=== PATIENT | male | born 1980 | race Hispanic/Latino ===

== ENCOUNTER 2018-10-11 18:32 | Emergency (ER) | payer OTHER ==
[2018-10-11 19:10] VITALS: BMI 29.2
[2018-10-11 19:11] VITALS: RESP 18
[2018-10-11] MEDS ORDERED: Sodium Chloride 0.9% 1,000 ML IV STA (19:39)
[2018-10-11 20:52] LABS: BASO # 0.01 K/mm3 (0.0-2.0); BASO % 0.1 % (0.0-3.0); GRAN # 5.69 (1.4-6.5); GRAN % 84.8 % (50.0-68.0); HEMOGLOBIN 16.1 g/dL (14.0-18.0); LYMPH # 0.6 (1.2-3.4); LYMPH % 9.4 % (22.0-35.0); MEAN CELL VOLUME 87.3 fl (80.0-105.0); MEAN CORPUSCULAR HEMOGLOBIN 30.1 pg (25.0-35.0); MEAN CORPUSCULAR HGB CONC 34.5 g/dl (31.0-37.0); MEAN PLATELET VOLUME 9.9 fl (7.0-11.0); MONO # 0.4 (0.1-0.6); MONO % 5.7 % (1.0-6.0); RBC 5.35 10^6/uL (3.5-6.1); RED CELL DISTRIBUTION WIDTH 12.3 % (11.5-14.5); WHITE BLOOD COUNT 6.7 10^3/uL (4.5-11.0)
[2018-10-11 20:56] LABS: ALB/GLOB RATIO 1.4 (1.1-1.8); ALBUMIN 4.3 g/dL (3.0-4.8); ALT/SGPT 46 U/L (7-56); AST/SGOT 29 U/L (17-59); BLOOD UREA NITROGEN 17 mg/dL (7-21); CALCIUM 9.1 mg/dL (8.4-10.5); GFR NON-AFRICAN AMERICAN > 60
[2018-10-11 22:56] VITALS: TEMP 98.6
--- NOTE | 2018-10-11 23:19 | ED PDOC ---
Arrival/HPI - General Chief Complaint: Flu-like Symptoms Time Seen by Provider: 10/11/18 19:10 Historian: Patient - History of Present Illness Narrative History of Present Illness (Text): 10/11/18 23:19 37-year-old otherwise healthy male presents today with body aches, fevers, sore throat, nasal congestion and occasional cough that started yesterday. Patient states she had an episode of vomiting this morning along with some epigastric pain, which resolved. Patient states he's been taking Motrin for fever at home. He is complaining of fatigue. He denies any abdominal pain at present time. He denies dizziness or weakness. He denies back pain. Denies any urinary symptoms. Patient denies sick contacts. Patient states he did not get his flu shot this year. Time/Duration: Other (yesterday) Symptom Onset: Gradual Symptom Course: Worsening Quality: Aching Severity Level: Mild Past Medical History - Provider Review Nursing Documentation Reviewed: Yes - Travel History Have you recently traveled outside [place] w/in the past 3 mons?: No - Infectious Disease Hx of Infectious Diseases: None - Psychiatric Hx Substance Use: No Family/Social History - Physician Review Nursing Documentation Reviewed: Yes Family/Social History: Unknown Family HX Smoking Status: Never Smoked Hx Alcohol Use: No Hx Substance Use: No Allergies/Home Meds Allergies/Adverse Reactions: Allergies No Known Allergies Allergy (Verified 10/11/18 19:10) Review of Systems - Review of Systems Constitutional: Fatigue, Fevers ENT: Sore Throat, Sinus Congestion Respiratory: Cough. absent: SOB Cardiovascular: absent: Chest Pain, Palpitations Gastrointestinal: Nausea, Vomiting Genitourinary Male: absent: Dysuria, Frequency, Hematuria Musculoskeletal: Other (bodyaches). absent: Back Pain, Neck Pain Neurological: Headache. absent: Dizziness Psychiatric: absent: Anxiety, Depression, Suicidal Ideation Physical Exam Vital Signs Reviewed: Yes Vital Signs Temp Pulse Resp BP Pulse Ox 10/11/18 22:56 98.6 F 86 18 115/65 98 10/11/18 21:09 100.4 F H 93 H 18 113/66 96 10/11/18 20:18 101.5 F H 10/11/18 19:10 101.5 F H 108 H 18 105/70 98 Temperature: Febrile Blood Pressure: Normal Pulse: Tachycardic Respiratory Rate: Normal Appearance: Positive for: Well-Appearing, Non-Toxic, Comfortable Pain Distress: None Mental Status: Positive for: Alert and Oriented X 3 - Systems Exam Head: Present: Atraumatic Pupils: Present: PERRL Extroacular Muscles: Present: EOMI Conjunctiva: Present: Normal Ears: Present: Normal, NORMAL TM Mouth: Present: Moist Mucous Membranes, Normal Lips, Normal Tounge. No: Drooling, Trismus, Normal Teeth Pharnyx: Present: Normal. No: ERYTHEMA, Peritonsilar Swelling, Uvular Deviation Nose (External): Present: Atraumatic Nose (Internal): Present: Normal Inspection Neck: Present: Normal Range of Motion, Trachea Midline Respiratory/Chest: Present: Clear to Auscultation, Good Air Exchange. No: Respiratory Distress, Accessory Muscle Use Cardiovascular: Present: Regular Rate and Rhythm Abdomen: No: Tenderness, Distention, Peritoneal Signs, Rebound, Guarding Back: Present: Normal Inspection. No: Midline Tenderness, Paraspinal Tenderness Upper Extremity: Present: Normal ROM Neurological: Present: GCS=15 Skin: Present: Warm, Dry, Normal Color. No: Rashes Psychiatric: Present: Alert, Oriented x 3 Medical Decision Making ED Course and Treatment: 10/11/18 23:23 patient resting comfortably in the emergency room febrile and tachycardic with flulike symptoms since yesterday. Abdomen is soft nontender nondistended. Patient was given Tylenol by mouth, Toradol IV and 1 L normal saline IV bolus CBC within normal limits CMP within normal limits Rapid flu negative Chest x-ray no infiltrate or effusion Tamiflu given by mouth Patient reassessment: Patient feeling better after medications. Vital signs are stable. abdomen remains soft non tender, non distended. I discussed all results in depth with the patient advised follow-up with primary care physician within the next few days. Advised increasing fluids and alternating Tylenol and Motrin for fever reduction. I've advised taking Tamiflu twice daily 5 days. Advised patient to return immediately if he develops abdominal pain with continued nausea and vomiting or if any other concerning symptoms develop Patient verbalizes understanding of discharge instructions and need for immediate followup. all aspects of this case were discussed the attending of record. IMPRESSION; influenza Motrin one tablet every 6 hours as needed for pain/fever reduction Tamiflu twice daily 5 days Increase fluids Followup with primary care physician the next 2 days Return immediately if symptoms worsen persist or if new symptoms develop Reassessment Condition: Re-examined, Improved - Lab Interpretations Lab Results: 10/11/18 20:41 10/11/18 20:41 Lab Results 10/11/18 20:41: Influenza Typ A,B (EIA) Negative for flu a/b 10/11/18 20:41: WBC 6.7, RBC 5.35, Hgb 16.1, Hct 46.7, MCV 87.3, MCH 30.1, MCHC 34.5, RDW 12.3, Plt Count 181, MPV 9.9, Gran % 84.8 H, Lymph % (Auto) 9.4 L, Glynn % (Auto) 5.7, Eos % (Auto) 0.0 L, Baso % (Auto) 0.1, Gran # 5.69, Lymph # (Auto) 0.6 L, Glynn # (Auto) 0.4, Eos # (Auto) 0.0, Baso # (Auto) 0.01 10/11/18 20:41: Sodium 137, Potassium 4.4, Chloride 102, Carbon Dioxide 27, Anion Gap 12, BUN 17, Creatinine 0.9, Est GFR ( Amer) > 60, Est GFR (Non- Af Amer) > 60, Random Glucose 100, Calcium 9.1, Total Bilirubin 0.6, AST 29, ALT 46, Alkaline Phosphatase 58, Total Protein 7.3, Albumin 4.3, Globulin 3.0, Albumin/Globulin Ratio 1.4 - RAD Interpretation Radiology Orders: 10/11/18 19:39 CHEST TWO VIEWS (PA/LAT) [RAD] Stat - Medication Orders Current Medication Orders: Discontinued Medications Acetaminophen (Tylenol 325mg Tab) 975 mg PO STAT STA Stop: 10/11/18 19:40 Last Admin: 10/11/18 20:18 Dose: 975 mg MAR Pain/Vitals Document 10/11/18 20:18 RAFAEL (Rec: 10/11/18 20:[address] [facility] [id number]) Pain Reassessment Is This A Pain ReAssessment? No Sleep Is patient sleeping during reassessment? No Presence of Pain Presence of Pain Yes Pain Scale Used Protocol: PSCALES Pain Scale Used Numeric Vitals Temperature (97.6 F-99.6 F) 101.5 F Temperature Source Oral Sodium Chloride (Sodium Chloride 0.9%) 1,000 mls @ 999 mls/hr IV .Q1H1M STA Stop: 10/11/18 20:39 Last Admin: 10/11/18 20:20 Dose: 999 mls/hr eMAR Start Stop Document 10/11/18 20:20 LA (Rec: 10/11/18 20:[address] [facility] [id number]) Intravenous Solution Start Date 10/11/18 Start Time 20:20 End Date 10/11/18 End time 21:20 Total Infusion Time 60 Ketorolac Tromethamine (Toradol) 30 mg IVP STAT STA Stop: 10/11/18 19:40 Last Admin: 10/11/18 20:18 Dose: 30 mg MAR Pain Assessment Document 10/11/18 20:18 LA (Rec: 10/11/18 20:[address] [facility] [id number]) Pain Reassessment Is this a pain reassessment? No Sleep Is patient sleeping during reassessment? No Presence of Pain Presence of Pain Yes Pain Scale Used Protocol: PSCALES Pain Scale Used Numeric Location Pain Location Body Site Generalized Description Intensity of Pain at present 5 IVP Administration Document 10/11/18 20:18 LA (Rec: 10/11/18 20:[address] [facility] [id number]) Charges for Administration # of IVP Administrations 1 Ondansetron HCl (Zofran Inj) 4 mg IVP STAT STA Stop: 10/11/18 19:41 Last Admin: 10/11/18 20:19 Dose: 4 mg IVP Administration Document 10/11/18 20:19 LA (Rec: 10/11/18 20:[address] [facility] [id number]) Charges for Administration # of IVP Administrations 1 Oseltamivir Phosphate (Tamiflu Cap) 75 mg PO STAT STA; Protocol Stop: 10/11/18 21:36 Last Admin: 10/11/18 21:55 Dose: 75 mg Disposition/Present on Arrival - Present on Arrival Any Indicators Present on Arrival: No History of DVT/PE: No History of Uncontrolled Diabetes: No Urinary Catheter: No History of Decub. Ulcer: No History Surgical Site Infection Following: None - Disposition Have Diagnosis and Disposition been Completed?: Yes Diagnosis: Influenza Disposition: HOME/ ROUTINE Disposition Time: 22:30 Patient Plan: Discharge Condition: GOOD Discharge Instructions (ExitCare): Flu, Adult (DC) Additional Instructions: Motrin one tablet every 6 hours as needed for pain/fever reduction Tamiflu twice daily 5 days Increase fluids Followup with primary care physician the next 2 days Return immediately if symptoms worsen persist or if new symptoms develop Prescriptions: Ibuprofen [Motrin] 600 mg PO Q6H PRN #20 tab PRN Reason: pain/fever reduction Oseltamivir Cap [Tamiflu] 75 mg PO BID #10 cap Referrals: Katy Schroeder MD [Medical Doctor] - Follow up with primary [facility] [Outside] - Follow up with primary Forms: [employer] ([place]ian), WORK NOTE
[2018-10-11 23:56] VITALS: BP 118/67; PULSE 84; O2SAT 99
--- NOTE | 2018-10-12 11:37 | RAD ---
Date of service: 10/11/2018 HISTORY: cough/fever COMPARISON: No prior. TECHNIQUE: Chest PA and lateral FINDINGS: LUNGS: No active pulmonary disease. PLEURA: No significant pleural effusion identified. No pneumothorax apparent. CARDIOVASCULAR: No aortic atherosclerotic calcification present. Normal cardiac size. No pulmonary vascular congestion. OSSEOUS STRUCTURES: No significant abnormalities. VISUALIZED UPPER ABDOMEN: Normal. OTHER FINDINGS: None. IMPRESSION: No active disease.
== END 2018-10-11 23:30 | disposition home or self-care (01) ==
LOC: ED 18:32
DX: J11.1 Influenza due to unidentified influenza virus with other respiratory manifestations (principal)
CPT/HCPCS: 71046; 80053; 85025; 87804; 96361; 96374; 96375; 99284; J1885; J2405; J7030